=== PATIENT | male | born 1965 | race African-American/Black ===

== ENCOUNTER 2020-05-14 17:05 | Emergency (ER) | payer SELFPAY ==
[2020-05-14] MEDS ORDERED: cefTRIAXone\\ROCEPHIN 1 GM VIAL ONE (18:09)
[2020-05-14] MEDS ORDERED: Azithromycin 250 MG TAB ONE (18:09)
[2020-05-14] MEDS ORDERED: Lidocaine 1% PF 5 ML VIAL ONE (18:09)
[2020-05-16 22:41] LABS: Chlam.trachomatis by PCR,Urine Not Detected (NotDetected)
[2020-05-21 18:38] LABS: Chlamydia trachomatis by NAA Negative (Negative)
== END 2020-05-14 18:41 | disposition home or self-care (01) ==
LOC: ERS 17:05
DX: A54.09 Other gonococcal infection of lower genitourinary tract (principal); A54 Gonococcal infection
CPT/HCPCS: 87491; 87591; 96372; 99283; J0696